=== PATIENT | female | born 1995 | race Hispanic/Latino ===

== ENCOUNTER 2020-06-25 01:26 | Emergency (ER) | payer OTHER ==
[~2020-06-25] VITALS: Ht 160 cm; Wt 59.0 kg
[2020-06-25] MEDS ORDERED: DIAZEPAM 5 MG TAB PO PRN (01:45)
[2020-06-25] MEDS ORDERED: HYDROCODONE/APAP 7.5MG-325MG 1 EA TAB PO PRN (01:45)
[2020-06-25] MEDS ORDERED: DIAZEPAM 5 MG TAB ONE (01:48)
[2020-06-25] MEDS ORDERED: HYDROCODONE/APAP 7.5MG-325MG 1 EA TAB ONE (01:49)
--- OUTSIDE RECORDS SUMMARY | 2020-06-25 01:59 | XMS REPORT | Continuity of Care Document ---
Author Author [facility] Organization [facility] Address [address] [place] [address] Dr. Del[address]. [address] [place] [address] Phone Unavailable Care Team Providers Care Stripper Latex Name Role Phone Bárbara BALES Attphys Unavailable Problems This patient has no known problems. Allergies, Adverse Reactions, Alerts This patient has no known allergies or adverse reactions. Medications This patient has no known medications. Procedures This patient has no known procedures. Results Test Description Test Time Test Comments Results Result Comments Source CHEST 2 VIEWS [place] [address] Patient Name: OSCAR VICENTE MR #: [id number] : 1995 Age/Sex: 22/F Req #: [id number] Adm Physician: Ordered by: MILI BALES MD Report #: [id number] Location: ER Room/Bed: Procedure: [id number] DX/CHEST 2 VIEWS Exam Date: 06/13/17 Exam Time: 0200 REPORT STATUS: Signed EXAM: CHEST 2 VIEWS, PA and lateral DATE: 06/13/2017 1:43 AM Time stamp on exam: 0153 hours INDICATION: Chest pain COMPARISON: None FINDINGS: LINES/TUBES: None LUNGS: No consolidations or edema. PLEURA: No effusions or pneumothorax. HEART AND MEDIASTINUM: Normal size and contour. BONES AND SOFT TISSUES: No acute findings. IMPRESSION: No acute thoracic abnormality. Signed by: Dr. Danyell Toure M.D. on 06/13/2017 2:43 AM Dictated By: DANYELL TOURE MD 2 Transcribed By: JEREMY on 06/13/17242 COPY TO: MILI BALES MD
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
[2020-06-25] MEDS ORDERED: ROBAXIN-750750 MG PO (03:20)
[2020-06-25] MEDS ORDERED: NAPROSYN500 MG PO (03:20)
[2020-06-25 03:22] VITALS: BP 107/74
== END 2020-06-25 03:30 | disposition home or self-care (01) ==
LOC: ER 01:56
DX: S02.2XXA Fracture of nasal bones, initial encounter for closed fracture (principal); V43.62XA Car passenger injured in collision with other type car in traffic accident, initial encounter; Y92.488 Other paved roadways as the place of occurrence of the external cause
CPT/HCPCS: 70486; 99283

== ENCOUNTER → 2020-07-06 | Day surgery (SDC) | payer OTHER ==
[~2020-07-06] MED LIST: ACETAMINOPHEN 1000 MG/100 ML 100 ML IV ONE; DEXAMETHASONE SOD PHOS INJ 4 MG/ML VIAL ONE; EPINEPHRINE HCL 1:1000 1ML 1 MG/ML AMP ONE; FENTANYL CITRATE/PF 100MCG/2 ML INJ ONE; GLYCOPYRROLATE INJ 0.2 MG/ML VIAL ONE; HYDROMORPHONE 1MG/1ML INJ ONE; LIDOCAINE 1% W/EPINEPHRINE 20 ML VIAL ONE; LIDOCAINE HCL (LTA) 4 ML SOLN ONE; LIDOCAINE HCL 2% LOCAL INJ 5 ML SDV VIAL INJ ONE; MIDAZOLAM HCL 2 MG/2 ML VIAL ONE; NAPROSYN500 MG PO; NEOSTIGMINE 1 MG/ML 10ML VIAL ONE; ONDANSETRON HCL INJ 2MG/ML 2ML 2 MG/ML VIAL ONE; PROPOFOL IV EMULSION 10 MG/ML 20 ML VIAL ONE; ROBAXIN-750750 MG PO; ROCURONIUM BROMIDE 10 MG/ML 5ML VIAL IV ONE; SEVOFLURANE INHAL SOLN 250 ML PEN BTL ONE
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
--- NOTE | 2020-07-06 07:20 | NUR ---
SPIRITUAL CARE - Pre-Surgery Assessment: Pt in bed. Pt's sister at bedside. Pt reported supportive attention from family and friends. Intervention: Radio Repairer Domestic provided pastoral presence, hospitality, and sympathetic listening. Acquainted pt with availability of elevator mechanic while hospitalized. Outcome: Pt expressed appreciation for visit. No need for follow up indicated at this time. BETHEL Naylor Spiritual Care Department O: [phone]
[2020-07-06 10:20] VITALS: BP 120/78
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
== END | disposition home or self-care (01) ==
LOC: OR 06:05
PROVIDERS: ATTEND Otolaryngology Otolaryngology/Facial Plastic Surgery
DX: J34.2 Deviated nasal septum (principal); S02.2XXA Fracture of nasal bones, initial encounter for closed fracture; J34.89 Other specified disorders of nose and nasal sinuses; V89.2XXA Person injured in unspecified motor-vehicle accident, traffic, initial encounter; Y92.411 Interstate highway as the place of occurrence of the external cause; Z01.812 Encounter for preprocedural laboratory examination; Z11.59 Encounter for screening for other viral diseases
CPT/HCPCS: 21320; 30520; 81025; 88300; J0131; J0171; J1100; J1170; J2001; J2250; J2405; J2704; J2710; J3010; U0002